=== PATIENT | female | born 1970 | race Caucasian/White ===

== ENCOUNTER 2017-01-07 16:18 | Outpatient (CLI) | payer OTHER ==
[2017-01-07 16:47] LABS: #Eosinphils 0.1 thou/uL (0.0-0.7); #Lymphocytes 1.8 thou/uL (1.20-3.40); #Monocytes 0.4 thou/uL (0.11-0.59); #Neutrophils 6.2 thou/uL (1.40-6.50); %Basophils 0.5 % (0.0-1.0); %Eosinophils 1.6 % (0.0-10.0); %Lymphocytes 20.9 % (21.0-51.0); %Monocytes 4.3 % (0.0-10.0); Hematocrit 38.4 % (36.0-47.0); Mean Platelet Volume 7.4 fL (7.4-10.4); Red Blood Cell (RBC) Count 4.33 mill/uL (4.20-5.40); White Blood Cell (WBC) Count 8.6 thou/uL (4.8-10.8)
[2017-01-07 17:06] LABS: Anion Gap 12 mmol/L (10-20); BUN (Urea Nitrogen) 9 mg/dL (7.0-18.7); Calc. Creatinine Clearance 0 mL/min (70-130); Calcium 9.1 mg/dL (7.8-10.44); Carbon Dioxide 24 mmol/L (22-29); Chloride 106 mmol/L (98-107); Estimated GFR-MDRD 81
== END 2017-01-07 16:19 | disposition home or self-care (01) ==
LOC: LABBT 16:18
PROVIDERS: ATTEND Specialist
DX: Z01.812 Encounter for preprocedural laboratory examination (principal); K80.80 Other cholelithiasis without obstruction
CPT/HCPCS: 80048; 84703; 85025

== ENCOUNTER 2017-01-14 07:53 | Day surgery (SDC) | payer OTHER ==
--- NOTE | 2016-12-31 12:12 | HP ---
HISTORY OF PRESENT ILLNESS: Sandra Terrazas is a 46-year-old female, presents with a 2-year history of biliary symptoms. This is becoming worse more recently. Ultrasound, 12/17/2016 reveals gallblad danial filled with stones, gallbladder wall thickening, 3 mm bile duct. Abdominal ultrasound otherwise unremarkable. She has been seen by Dr. Amaya. She has had intermittent elevations of her ALT and AST, otherwise normal. Plan is for laparoscopic cholecystectomy and cholangiogram. She understand s the risks and benefits and consents. ALLERGIES: None. TOBACCO: None. ALCOHOL: Socially, rarely. MEDICATIONS: None routinely except for dicyclomine occasionally. PAST SURGICAL HISTORY: . PAST MEDICAL HISTORY: Noncontributory. REVIEW OF SYSTEM: Ten point review of systems negative. PHYSICAL EXAMINATION: VITAL SIGNS: 258 pounds, 5 feet 9 inches, 38 BMI, 153/73, 79, 97. HEENT: Unremarkable. LUNGS: Clear to auscultation. CARDIAC: Regular rate and rhythm without murmur or gallop. ABDOMEN: Soft, nontender. EXTREMITIES: Unremarkable. ASSESSMENT AND PLAN: Symptomatic cholelithiasis, cholecystitis. I recommend laparoscopic video cho lecystectomy. Risks of infection, bleeding, visceral and biliary injury discussed. Visual age used , questions answered.
[2017-01-07 16:39] VITALS: BMI 37.6
[2017-01-14] MEDS ORDERED: CEFAZOLIN/Water 2 GM/20 ML SYRINGE ONE (09:39)
[2017-01-14] MEDS ORDERED: Ketorolac Tromethamine 30 MG/ML VIAL ONE (09:40)
[2017-01-14] MEDS ORDERED: Bupivacaine PF 0.5% 30 ML VIAL ONE (10:54)
[2017-01-14] MEDS ORDERED: Lidocaine 2% w/Epinephrine 1:200K 20 ML VIAL ONE (10:54)
[2017-01-14] MEDS ORDERED: Iothalamate Meglumine 60% 50 ML VIAL FS ONE (10:55)
[2017-01-14] MEDS ORDERED: Fentanyl 250 MCG/5 ML VIAL ONE (11:00)
[2017-01-14] MEDS ORDERED: Glycopyrrolate 0.2 MG/ML 5 ML SYRINGE ONE (11:15)
[2017-01-14] MEDS ORDERED: Propofol 200 MG/20 ML VIAL ONE (11:15)
[2017-01-14] MEDS ORDERED: Dexamethasone 20 MG/5 ML VIAL ONE (11:15)
[2017-01-14] MEDS ORDERED: Ondansetron HCl/PF 4 MG/2 ML Vial ONE ×2 (11:15→13:09)
[2017-01-14] MEDS ORDERED: Lidocaine 1% PF 5 ML VIAL ONE (11:15)
[2017-01-14] MEDS ORDERED: Promethazine HCl 25 MG/ML VIAL ONE ×2 (12:28→13:01)
--- NOTE | 2017-01-14 12:28 | OP ---
PREOPERATIVE DIAGNOSES: Chronic cholecystitis, cholelithiasis, intermittent elevation of transamina ses. POSTOPERATIVE DIAGNOSES: Chronic cholecystitis, cholelithiasis, intermittent elevation of transamin ases. PROCEDURES: Laparoscopic video cholecystectomy and normal intraoperative cholangiogram. SURGEON: Dr. Jesus Canales ANESTHESIA: General. Local 0.5% Marcaine, 30 mL, mixed with 1% Xylocaine with epinephrine, 30 mL. DESCRIPTION OF THE PROCEDURE: Patient taken to the operating room where under general anesthesia, a bdomen was prepared with ChloraPrep, draped in routine fashion. Local anesthetic infiltrated into s kin and subcutaneous tissue about all port sites. Infraumbilical incision made and pneumoperitoneum to 15 mmHg obtained with the Veress needle, replacing it with a 5 port. Video laparoscope inserted . Right subxiphoid incision made and 11 port placed. Right subcostal incision made midclavicular, anterior axillary lines and 5 ports placed. Liver appeared to be normal. Gallbladder wall was thic kened. Fundus of gallbladder grasped and reflected cephalad. Infundibulum grasped and reflected la terally. Cystic artery and duct dissected free after taking down omental and gastric adhesions to t he gallbladder body. Cystic artery and duct dissected free. Critical view obtained. Cystic artery double clipped proximally. Cystic duct singly clipped on the gallbladder side. Opening made in th e cystic duct and cholangiocath inserted and cholangiogram was obtained using fluoroscopy. This rev ealed a dilated common bile duct (contrary to preoperative ultrasound, 3 mm bile duct) without filli ng defect and visualization of the left and right hepatic ducts, common hepatic, common bile ducts o btained and there were no filling defects and contrast emptied well into the duodenum. Cholangiocat heter removed. Cystic duct stump doubly clipped and the cystic artery and duct divided. The gallbl adder dissected free from the liver bed obtaining good hemostasis prior to division of final periton eal attachments. Gallbladder and contents removed. There was a very large gallstone requiring frag mentation to remove. Good hemostasis ensured. Irrigant and pneumoperitoneum evacuated. All instru ments removed and all skin incisions approximated with interrupted subdermal 4-0 Monocryl and DermaG lue applied. The patient tolerated the procedure well without complications.
[2017-01-14] MEDS ORDERED: Fentanyl 100 MCG/2 ML VIAL ONE ×2 (12:36→13:11)
--- NOTE | 2017-01-14 14:49 | RAD ---
OPERATIVE CHOLANGIOGRAM ONE VIEW: HISTORY: Intraoperative cholangiogram imaging. FINDINGS: The common duct is opacified. There is suggestion of a faint filling defect in the mid common duct. I cannot exclude common duct stone or air bubble. No other abnormality seen. POS: JUAN DANIEL
== END 2017-01-14 16:15 | disposition home or self-care (01) ==
LOC: SDC 07:53
PROVIDERS: ATTEND Specialist
PROC: 0FT44ZZ Resection of Gallbladder, Percutaneous Endoscopic Approach (ICD-10-PCS; principal; 2017-01-14)
DX: K80.10 Calculus of gallbladder with chronic cholecystitis without obstruction (principal)
CPT/HCPCS: 47532; 88304; 96374; J0131; J1100; J1610; J1885; J2001; J2405; J2550; J2704; J3010; Q9961; S0020